=== PATIENT | male | born 1950 | race Caucasian/White ===

== ENCOUNTER → 2019-04-04 | Outpatient (CLI) | payer MEDICARE, BC ==
--- NOTE | 2019-04-04 16:44 | PCVCIMAG ---
APPROVED REPORT Indications Bruit Risk Factors Hypertension: Hyperlipidemia Doppler Spectral Velocity Analysis PSV / EDVPSV / EDV ECA (R) 113 / 11 cm/sECA (L) 162 / 22 cm/s dICA (R) 61 / 18 cm/sdICA (L) 52 / 16 cm/s Slava (R) 82 / 19 cm/smICA (L) 73 / 21 cm/s pICA (R) 93 / 16 cm/spICA (L) 104 / 22 cm/s Bulb (R) 74 / 13 cm/sBulb (L) 101 / 24 cm/s dCCA (R) 86 / 13 cm/sdCCA (L) 106 / 24 cm/s mCCA (R) 100 / 18 cm/smCCA (L) 111 / 16 cm/s Vert (R) 36 / 9 cm/sVert (L) 46 / 12 cm/s ICA/CCA 0.98 ICA/CCA 0.93 Basic Measurements Blood Pressure: Pulses: Right Left RightLeft Brachial(Sitting) 138/17boGf868/80mmHgTemporal Findings RIGHT CAROTID: The carotid bulb has moderate plaque. The proximal internal carotid artery shows <40% stenosis. The common carotid artery shows no significant stenosis. The external carotid artery shows no significant stenosis. LEFT CAROTID: The carotid bulb has moderate plaque. The proximal internal carotid artery shows <40% stenosis. The common carotid artery shows no significant stenosis. The external carotid artery shows 60% stenosis. Conclusion <40% stenosis of the right internal carotid artery with moderate plaque. <40% stenosis of the left internal carotid artery with moderate plaque.
--- NOTE | 2019-04-07 11:33 | PCVCIMAG ---
APPROVED REPORT Study performed: 04/04/2019 15:01:21 Exam: Stress Echocardiogram Indication: Elevated CA Score, Hyperlipidemia, Hypertension Patient Location: Echo lab Stress Nurse: Ashanti Zafar RN Room #: 1 Status: routine Ht: 5 ft 9 in HR: 72 bpm BP: 128/80 mmHg Rhythm: NSR Procedure The patient underwent an Exercise Stress Test using the Steven Protocol. Blood pressure, heart rate, and EKG were monitored. An Echocardiogram was performed by shop service technician in four stages in quad fashion. At peak stress, four selected images were obtained and placed side by side with resting images for comparison. Stress Test Details Stress Test: Exercise stress testing was performed using a Steven protocol. HR Resting HR: 72 bpmMax Heart Rate (APMHR): 151 bpm Max HR Achieved: 153 bpmTarget HR (85% APMHR): 128 bpm % of APMHR: 101 Recovery HR: 92 bpm HR response to stress: Normal HR response to stress BP Resting BP: 128/80 mmHg Max BP: 190/88 mmHg Recovery BP: 142/68 mmHg BP response to stress: Normal blood pressure response to stress. ECG Resting ECG: Sinus Rhythm Stress ECG: Sinus Rhythm Arrhythmia: Rare PVC Recovery ECG: Sinus Rhythm Clinical Reason for Termination: Maximal effort Exercise duration: 12 min 01 sec Highest Stage Achieved: Stage 3: 3.4 mph at 14% grade. Exercise capacity: 13.70 METs Overall Exercise Capacity for Age: Good Stress ECG Conclusion ECG: Non-ischemic Clinical: Non-ischemic Pre-Stress Echo The resting Echocardiogram showed normal left ventricular contractility with an estimated Ejection Fraction of about >55%. Normal wall motion in all segments on baseline images. Post-Stress Echo The stress Echocardiogram showed normal left ventricular contractility with an estimated Ejection Fraction of about 60-65%. Normal augmentation of wall motion in all segments on post stress images. Clinical No clinical or ECG evidence for ischemia. Conclusion Clinical Response: Non-ischemic Exercise Capacity: Superior Stress ECG Response: Non-ischemic Stress Echo Images: Non-ischemic No clinical, EKG or echocardiographic evidence for ischemia. Normal stress echocardiogram with maximal exercise stress. Trace pulmonic and tricuspid regurgitation. Other Information Study Quality: Adequate <Conclusion> No clinical, EKG or echocardiographic evidence for ischemia. Normal stress echocardiogram with maximal exercise stress. Trace pulmonic and tricuspid regurgitation.
== END | disposition home or self-care (01) ==
LOC: PCVCIMAG 13:34
PROVIDERS: ATTEND Internal Medicine Cardiovascular Disease
DX: I65.23 Occlusion and stenosis of bilateral carotid arteries (principal); R93.1 Abnormal findings on diagnostic imaging of heart and coronary circulation; E78.5 Hyperlipidemia, unspecified; I10 Essential (primary) hypertension
CPT/HCPCS: 93325; 93351; 93880